=== PATIENT | female | born 1965 | race Caucasian/White ===

== ENCOUNTER 2016-10-13 13:31 | Day surgery (SDC) | payer OTHER ==
[~2016-10-13] VITALS: Ht 170.2 cm; Wt 84.1 kg
[~2016-10-13 13:31] MED LIST: 0.9% Sodium Chloride 1,000 ML IV SCH; HYDR25TA4 PO; Sodium Chloride LOK Flush 10 mL Syringe IV PRN; fentaNYL-PF 50 mCg/mL 2 mL Inj IVPUSH PRN
[2016-10-13 14:37] VITALS: BP 140/89; PULSE 81; RESP 14; O2SAT 99
[2016-10-13] MEDS ORDERED: LEVO137T2 PO (14:43)
--- NOTE | 2016-10-13 16:22 | PCM.ENDCOL ---
Colonoscopy Date of Service: Oct 13, 2016 Physician Hussein Corona MD Pre Procedure Diagnosis: Screening Post Procedure Dx & Findings: Polyps hemorrhoids Procedure Colonoscopy PROCEDURE IN DETAIL: Prep adequate Withdrawal time 14 minutes After unremarkable rectal examination the Olympus video colonoscope was inserted patient's anal canal and was advanced to cecum. Landmarks were identified including the ileocecal valve and appendiceal orifice. Scope was withdrawn systematically. Visualized colonic mucosa showed healthy shiny mucosa with normal healthy-appearing vasculature. In the ascending colon there were total 4 polyps. All 1 mm or less in size. These were all resected using cold forcep. In the rectum retroflexion was done which showed hemorrhoids. Anal canal was inspected carefully on the way out and hemorrhoids noted. Impression Polyps 4 STATUS post complete removal Hemorrhoids Recommendation Repeat colonoscopy 3 years Presedation Assessment Risks and Benefits Informed consent was obtained from the patient after all risks and benefits including but not limited to drug reaction, infection, pain, bleeding, perforation, as well as alternatives were discussed. Patient monitoring Continuous pulse oximetry, cardiac monitoring, blood pressure monitoring, IV access, and oxygen at 2L per nasal cannula. Periprocedural Fentanyl: Fentanyl 100mcg Incrementally Midazolam: Midazolam 5mg Incrementally Complications There were no periprocedural complications identified. Post Procedure Plan Post Procedure Recommendations 1. Restrict activities today. 2. Resume normal activities in the morning. 3. Resume medications. 4. Patient informed of normal post procedure side effects as bloating, drowsiness, blood streaking in the stool. 5. average risk CRCS. If colon polyps come back as: -Hyperplastic- can repeat colonoscopy in 10 years -Tubular adenoma- repeat colonoscopy in 5 years -Tubulovillous/villous adenoma- repeat colonoscopy in 3 years -If any dysplasia- return to clinic as soon as possible 6. Please don't hesitate to call me with any questions. Hussein Corona MD Oct 13, 2016 16:22
[2016-10-13 16:24] VITALS: BP 152/85; PULSE 69; RESP 16; O2SAT 98
[2016-10-13 16:34] VITALS: BP 127/71; PULSE 72; RESP 16; O2SAT 98
[2016-10-13 16:38] VITALS: BP 138/82; PULSE 68; RESP 16; O2SAT 95
--- NOTE | 2016-10-16 11:04 | PATH ---
SURGICAL PATHOLOGY Attending Physician:Hussein Corona M.D. CASE STATUS: Signed Out PATIENT NAME: MERT RAPHAEL PID: [id number] : 1965 DATE COLLECTED:10/13/2016 00:00 SPECIMEN: Colon, Biopsy CLINICAL HISTORY: 1). ASCENDING POLYPS X4 FINAL DIAGNOSIS: 1.ASCENDING POLYPS: TUBULAR ADENOMAS, TWO. FRAGMENTS OF UNREMARKABLE COLONIC MUCOSA, THREE. MULTIPLE MICROSCOPIC LEVELS EXAMINED. ICD10 CODE D12.2 GROSS DESCRIPTION: The specimen is received in one formalin filled container labeled with the patient's name, sublabeled "ascending polyps" and consists of 5 tiny portions of tissue which aggregate to 0.2 x 0.2 x 0.2 CM. The specimen is entirely submitted in one cassette. 10/14/2016 [facility] MICRO DESCRIPTION: See diagnosis. ICD-9 CODES: CPT CODES: 1: 58662 Electronically Signed Out Kaylene Espinoza MD [facility] [address], [place] [address] Technical component performed at [facility], [address] [place] [address] Ave[address], [address]
== END 2016-10-13 23:59 | disposition home or self-care (01) ==
LOC: END 13:31
PROVIDERS: ATTEND Internal Medicine
DX: Z12.11 Encounter for screening for malignant neoplasm of colon (principal); D12.2 Benign neoplasm of ascending colon; K64.9 Unspecified hemorrhoids; I10 Essential (primary) hypertension; E03.9 Hypothyroidism, unspecified; F41.9 Anxiety disorder, unspecified; F32.9 Major depressive disorder, single episode, unspecified
CPT/HCPCS: 45380; 88305; 99153; G0500; J7030